=== PATIENT | male | born 1965 | race Caucasian/White ===

== ENCOUNTER → 2022-11-11 | Outpatient (CLI) | payer OTHER ==
--- NOTE | 2022-11-11 16:11 | DIREP ---
PROCEDURE:XRAY SHOULDER MIN 2 VWS-RT COMPARISON:None. INDICATIONS:HX AND PHYSICAL EVALUATION FINDINGS: BONES:Normal. No fracture. No lytic or blastic lesion of bone. JOINTS:Normal glenohumeral joint. Normal acromioclavicular joint. No evidence for dislocation. SOFT TISSUES:Normal. OTHER:Interstitial prominence of the right lung markings. CONCLUSION:No bony degenerative change or acute bony trauma of the right shoulder. Dictated by: Rob Billings M.D. on 11/11/2022 at 04:09 PM
--- NOTE | 2022-11-11 16:46 | DIREP ---
PROCEDURE:CHEST 2 VIEWS COMPARISON:CT scan of chest without contrast, 03/24/2020 [facility]. INDICATIONS:HX AND PHYSICAL EVALUATION FINDINGS:, LUNGS/PLEURA:Coarse interstitial prominence of bilateral lung markings. No airspace consolidation or pleural effusion. VASCULATURE:Normal. Unremarkable pulmonary vasculature. CARDIAC:Normal. No cardiac silhouette abnormality or cardiomegaly. MEDIASTINUM:Normal. No visible mass or adenopathy. BONES:Normal. No fracture or visible bony lesion. OTHER:Negative. CONCLUSION: 1. There are findings suggestive of [id number] chronic interstitial fibrosis, consistent with findings on identified on prior CT scan of 2019. 2. Normal heart size. No air symptoms of airspace consolidation or pleural effusion. Dictated by: Rob Billings M.D. on 11/11/2022 at 04:42 PM
== END | disposition home or self-care (01) ==
LOC: RAD 12:58
PROVIDERS: ATTEND Nurse Practitioner
DX: J84.10 Pulmonary fibrosis, unspecified (principal); Z00.00 Encounter for general adult medical examination without abnormal findings
CPT/HCPCS: 71046; 73030-RT

== ENCOUNTER → 2024-10-11 | Outpatient (CLI) | payer OTHER | END | disposition home or self-care (01) | LOC: RAD 13:51 | PROVIDERS: ATTEND Nurse Practitioner | DX: J84.9 Interstitial pulmonary disease, unspecified (principal) | CPT/HCPCS: 71046 ==